=== PATIENT | female | born 1980 | race Caucasian/White ===

== ENCOUNTER 2017-07-29 20:10 | Emergency (ER) | payer OTHER ==
[~2017-07-29] VITALS: Ht 162.6 cm; Wt 97.5 kg
[~2017-07-29 20:10] MED LIST: AMOXICILLIN875 MG PO; ANUSOL-HC30 GM RC; AUGMENTIN; AUGMENTIN 875875 MG PO; BENTYL10 MG PO; CEFDINIR300 MG PO; CIPROFLOXACIN500 M1 PO; CORTISPORIN OTI10 M2 OT; CORTISPORIN OTI10 M2 OTIC; DIPHENHIST50 MG PO; FLAGYL500 MG PO; FLOMAX PO; FLOXIN OTI0.3 %/5 ML OT; IBUPROFEN; IBUPROFEN 800800 MG PO; KEFLEX500 MG PO; LEVOTHYROXINE0.05 MG PO; MACROBID 100 M100 M1 PO; MIRALAX255 GM PO; NOHOMEMEDICATIONS; NORCO 5-325 TA1 EACH PO; PHENERGAN 25 MG25 M1 PO; PHENERGAN 25 MG25 MG PO; PHENERGAN25 MG RE; PROTONIX40 M1 PO; TESSALON200 MG PO; TRAMADOL 50 MG50 MG PO; ZANTAC 150MG T150 M1 PO; ZANTAC 150MG T150 MG PO; ZOFRAN4 MG PO; ZPAK PO
[2017-07-29 21:24] LABS: ABSOLUTE BASOPHILS 0.1 thou/uL (0.0-0.2); ABSOLUTE EOSINOPHILS 0.2 thou/uL (0.0-0.7); ABSOLUTE LYMPHOCYTES 3.1 thou/uL (0.8-5.3); ABSOLUTE MONOCYTES 0.9 thou/uL (0.0-1.2); BASOPHILS 0.8 %; HEMATOCRIT 39.3 % (37.0-47.0); HEMOGLOBIN 13.3 gm/dL (12.0-15.0); LYMPHOCYTES 33.7 %; MCH 30.2 pg (26.0-34.0); MCHC 33.7 g/dL (28.0-37.0); MCV 89.5 fL (80.0-100.0); MONOCYTES 9.6 %; MPV 6.8 fl. (7.2-11.1); NUCLEATED RBCS 0 /100WBC; PLATELET COUNT* 346 thou/uL (150-400); POLYS 53.9 %; RBC 4.39 mil/uL (4.20-5.00); RDW-CV 12.4 % (10.5-14.5); WBC 9.3 thou/uL (4.0-11.0)
[2017-07-29 21:33] LABS: CALCIUM 8.7 mg/dL (8.5-10.1); CREATININE 0.8 mg/dL (0.6-1.3); POTASSIUM 3.5 mmol/L (3.5-5.1)
[2017-07-29 21:38] LABS: ALBUMIN 3.6 g/dL (3.4-5.0); TOTAL BILIRUBIN 0.4 mg/dL (<0.1-1.0); TOTAL PROTEIN 7.3 g/dL (6.4-8.2)
[2017-07-29 21:53] LABS: URINE BILIRUBIN NEGATIVE (Negative); URINE BLOOD TRACE (Negative); URINE CLARITY CLEAR; URINE COLOR YELLOW; URINE GLUCOSE-RANDOM NEGATIVE (Negative); URINE KETONES NEGATIVE (Negative); URINE LEUKOCYTES-REFLEX TRACE (Negative); URINE NITRITE-REFLEX NEGATIVE (Negative); URINE PROTEIN NEGATIVE (Negative); URINE SPECIFIC GRAVITY 1.025 (1.005-1.030); URINE UROBILINOGEN 0.2 E.U./dl (0.2-1.0)
[2017-07-29 22:03] LABS: BACTERIA-REFLEX None Seen /HPF (None Seen); CASTS None Seen /LPF (None Seen); CRYSTALS None Seen /LPF (None Seen); SQUAMOUS >10 Many /LPF (0-3); URINE RBC None Seen /HPF (0-2); URINE WBC-REFLEX 6-15 Few /HPF (0-5)
[2017-07-29] MEDS ORDERED: PROTONIX40 M4 PO (23:20)
[2017-07-29] MEDS ORDERED: BENTYL 20 MG TA20 M1 PO (23:21)
[2017-07-29] MEDS ORDERED: PERCOCET 5-3251 EACH PO (23:27)
[2017-07-29 23:54] VITALS: BP 134/71
== END 2017-07-29 23:55 | disposition home or self-care (01) ==
LOC: M.ERS 20:10
PROVIDERS: Nurse Practitioner
DX: K44.9 Diaphragmatic hernia without obstruction or gangrene (principal); Z87.442 Personal history of urinary calculi; Z90.710 Acquired absence of both cervix and uterus; Z88.8 Allergy status to other drugs, medicaments and biological substances; Z88.5 Allergy status to narcotic agent; Z77.22 Contact with and (suspected) exposure to environmental tobacco smoke (acute) (chronic)

== ENCOUNTER 2018-01-04 10:11 | Emergency (ER) | payer OTHER ==
[~2018-01-04] VITALS: Ht 162.6 cm; Wt 102.1 kg
[~2018-01-04 10:11] MED LIST changes: +BENTYL 20 MG TA20 M1 PO; +PERCOCET 5-3251 EACH PO; +PROTONIX40 M4 PO
[2018-01-04 11:04] LABS: ABSOLUTE EOSINOPHILS 0.2 thou/uL (0.0-0.7); ABSOLUTE LYMPHOCYTES 2.1 thou/uL (0.8-5.3); ABSOLUTE MONOCYTES 0.8 thou/uL (0.0-1.2); ABSOLUTE NEUTROPHILS 4.6 thou/uL (1.6-8.1); BASOPHILS 0.6 %; EOSINOPHILS 2.2 %; HEMOGLOBIN 13.4 gm/dL (12.0-15.0); LYMPHOCYTES 27.1 %; MCH 30.1 pg (26.0-34.0); MCHC 33.6 g/dL (28.0-37.0); MCV 89.6 fL (80.0-100.0); MONOCYTES 10.2 %; MPV 7.2 fl. (7.2-11.1); NUCLEATED RBCS 0 /100WBC; PLATELET COUNT* 389 thou/uL (150-400); POLYS 59.9 %; RBC 4.46 mil/uL (4.20-5.00); RDW-CV 12.5 % (10.5-14.5); WBC 7.7 thou/uL (4.0-11.0)
[2018-01-04 11:08] LABS: CALCIUM 8.5 mg/dL (8.5-10.1); CREATININE 0.7 mg/dL (0.6-1.3); POTASSIUM 3.9 mmol/L (3.5-5.1)
[2018-01-04 11:13] LABS: ALBUMIN 3.3 g/dL (3.4-5.0); TOTAL BILIRUBIN 0.6 mg/dL (<0.1-1.0); TOTAL PROTEIN 7.3 g/dL (6.4-8.2)
[2018-01-04 11:44] LABS: URINE BILIRUBIN NEGATIVE (Negative); URINE BLOOD NEGATIVE (Negative); URINE CLARITY CLEAR; URINE COLOR YELLOW; URINE GLUCOSE-RANDOM NEGATIVE (Negative); URINE KETONES NEGATIVE (Negative); URINE LEUKOCYTES-REFLEX NEGATIVE (Negative); URINE NITRITE-REFLEX NEGATIVE (Negative); URINE PROTEIN NEGATIVE (Negative); URINE UROBILINOGEN 0.2 E.U./dl (0.2-1.0)
[2018-01-04] MEDS ORDERED: MEDROLDOSEPACK PO (12:10)
[2018-01-04 12:21] VITALS: BP 116/77
== END 2018-01-04 12:22 | disposition home or self-care (01) ==
LOC: M.ERS 10:11
PROVIDERS: Nurse Practitioner Family
DX: J06.9 Acute upper respiratory infection, unspecified (principal); R51 Headache; R30.0 Dysuria; Z90.710 Acquired absence of both cervix and uterus; Z77.22 Contact with and (suspected) exposure to environmental tobacco smoke (acute) (chronic); Z88.5 Allergy status to narcotic agent; Z88.8 Allergy status to other drugs, medicaments and biological substances

== ENCOUNTER 2018-10-23 18:42 | Inpatient (IN) | payer OTHER ==
[~2018-10-23] VITALS: Ht 162.6 cm; Wt 108.4 kg
[~2018-10-23 18:42] MED LIST changes: +MEDROLDOSEPACK PO
[2018-10-23 18:57] VITALS: BP 121/74
[2018-10-23 19:00] LABS: URINE BILIRUBIN NEGATIVE (Negative); URINE BLOOD 3+ (Negative); URINE CLARITY CLEAR; URINE COLOR YELLOW; URINE GLUCOSE-RANDOM NEGATIVE (Negative); URINE KETONES NEGATIVE (Negative); URINE LEUKOCYTES-REFLEX 2+ (Negative); URINE NITRITE-REFLEX POSITIVE (Negative); URINE PROTEIN 1+ (Negative); URINE SPECIFIC GRAVITY >= 1.030 (1.005-1.030); URINE UROBILINOGEN 0.2 E.U./dl (0.2-1.0)
[2018-10-23 19:03] LABS: MUCUS None Seen strn/LPF (None Seen); SQUAMOUS 4-10 Moderate /LPF (0-3)
[2018-10-23 19:04] LABS: BACTERIA-REFLEX 1-9 Few /HPF (None Seen); CASTS None Seen /LPF (None Seen); CRYSTALS None Seen /LPF (None Seen); URINE WBC-REFLEX >25 Many /HPF (0-5); WBC CLUMPS Few (None Seen)
[2018-10-23 19:05] LABS: URINE RBC 3-10 Few /HPF (0-2)
[2018-10-23 19:42] LABS: HEMATOCRIT 40.2 % (37.0-47.0); HEMOGLOBIN 13.5 gm/dL (12.0-15.0); MCH 29.8 pg (26.0-34.0); MCHC 33.6 g/dL (28.0-37.0); MCV 88.7 fL (80.0-100.0); MPV 7.2 fl. (7.2-11.1); NUCLEATED RBCS 0 /100WBC; PLATELET COUNT* 391 thou/uL (150-400); RBC 4.53 mil/uL (4.20-5.00); RDW-CV 12.4 % (10.5-14.5); WBC 8.7 thou/uL (4.0-11.0)
[2018-10-23 19:54] LABS: ANION GAP 11 mmol/L (7-16); BUN 14 mg/dL (7-18); CALCIUM 9.1 mg/dL (8.5-10.1); CHLORIDE 103 mmol/L (98-107); CO2 26 mmol/L (21-32); GLUCOSE 192 mg/dL (70-99); POTASSIUM 3.4 mmol/L (3.5-5.1); SODIUM 140 mmol/L (136-145)
[2018-10-23 19:55] LABS: ABSOLUTE NEUTROPHILS 4.7 thou/uL (1.6-8.1); POLYS 54.2 %
[2018-10-23 19:56] LABS: ABSOLUTE BASOPHILS 0.1 thou/uL (0.0-0.2); ABSOLUTE EOSINOPHILS 0.2 thou/uL (0.0-0.7); ABSOLUTE MONOCYTES 0.7 thou/uL (0.0-1.2); BASOPHILS 0.8 %; EOSINOPHILS 2.6 %; LYMPHOCYTES 34.1 %; MONOCYTES 8.3 %
[2018-10-23 20:07] LABS: ALBUMIN 3.6 g/dL (3.4-5.0); ALKALINE PHOSPHATASE 123 U/L (46-116); LIPASE 78 U/L (73-393); SGOT 21 U/L (15-37); SGPT 37 U/L (30-65); TOTAL BILIRUBIN 0.3 mg/dL (<0.1-1.0); TOTAL PROTEIN 7.4 g/dL (6.4-8.2); TROPONIN-I LEVEL <0.06 ng/mL (<0.06)
[2018-10-24] VITALS (7 sets, daily range): BP systolic 109–120; BP diastolic 62–78
--- NOTE | 2018-10-24 08:06 | NUR ---
PT GIVEN A BREAKFAST TRAY. PT IS STILL SLEEPING.
--- NOTE | 2018-10-24 11:19 | NUR ---
PATIENT'S ADMISSION ASSESSMENT AND HISTORY OBTAINED. DENIES ANY PAIN. REPORT GIVEN TO Sloane NORTON RN WHO IS RESUMING CARE. PATIENT'S CALL LIGHT WITHIN REACH.
[2018-10-24] MEDS ORDERED: PROTONIX40 M1 PO (11:21)
[2018-10-24] MEDS ORDERED: ZANTAC 150MG T150 MG PO (11:21)
--- NOTE | 2018-10-24 16:52 | NUR ---
PATIENT ARRIVED TO UNSIT FROM ED AT APPROX 1330. ALERT AND ORIENTED X4. ADMISSION HISTORY AND ASSESSMENT COMPLETED AND CHARTED. VSS ON ROOM AIR. FLUIDS INFUSING UPON ARRIVAL AND INFUSED ORDERED THROUGHOUT SHIFT. PATIENT REQUESTED TO CHANGE PAIN MEDICATION FROM FENTANYL TO MORPHINE AND TO ADD TORADOL, DR WEINSTEIN CHANGED ORDERS SUCH. PAIN MANAGED WITH MORPHINE AND TORADOL. BLOOD SUGARS MONITORED, NO NEED FOR INSULIN ATT HIS TIME BUT AWAITING HGA1C RESULTS TO DETERMINE DIABETIC STATUS. PATIENT RESTING IN BED AT THIS TIME. HOURLY ROUNDS COMPLETED, CALL LIGTH WITHIN REACH, NURSING WILL CONTINUE TO MONITOR.
[2018-10-25 04:42] LABS: HEMATOCRIT 35.9 % (37.0-47.0); HEMOGLOBIN 12.1 gm/dL (12.0-15.0); MCH 30.2 pg (26.0-34.0); MCHC 33.6 g/dL (28.0-37.0); MCV 89.8 fL (80.0-100.0); MPV 7.1 fl. (7.2-11.1); RDW-CV 12.9 % (10.5-14.5); WBC 5.6 thou/uL (4.0-11.0)
[2018-10-25 05:12] LABS: ALBUMIN 2.8 g/dL (3.4-5.0); CALCIUM 7.6 mg/dL (8.5-10.1); CREATININE 0.7 mg/dL (0.6-1.3); MAGNESIUM 1.6 mg/dL (1.8-2.4); POTASSIUM 3.9 mmol/L (3.5-5.1); TOTAL BILIRUBIN 0.2 mg/dL (<0.1-1.0); TOTAL PROTEIN 5.9 g/dL (6.4-8.2)
--- NOTE | 2018-10-25 05:20 | NUR ---
PT REMAINED ALERT AND ORIENTED. VITALS STABLE RA. MEDS GIVEN ORDERED. PAIN CONTROLLED WITH MORPHINE AND TORADOL. NO NAUSEA OR VOMITING THIS SHIFT. WILL CONTINUE TO MONITOR.
[2018-10-25 08:10] VITALS: BP 139/82
[2018-10-25 14:09] LABS: GLYCOHEMOGLOBIN (HGB A1C) 6.7 % (4.8-5.6)
[2018-10-25 15:30] VITALS: BP 106/52
--- NOTE | 2018-10-25 17:03 | NUR ---
pt remained alert and oriented. pt resting in room. pain meds given as ordered. fall risk precautions in place. hourly rounding completed. will continue to monitor.
[2018-10-25 20:35] VITALS: BP 125/85
--- NOTE | 2018-10-26 05:10 | NUR ---
PT REMAINED ALERT AND ORIENTED. VITALS STABLE. MEDS GIVEN ORDERED. ELECTROLYTE REPLACEMENT IN PROGRESS. PT STATED SEVERE HEADACHE WITH NAUSEA, RESOLVED WITH MORPHINE, TYLENOL, CAFFEIN. ICE PACK PROVIDED ALSO. PROMETHAZINE GIVEN PER PT REQUEST. WILL CONTINUE TO MONITOR.
[2018-10-26 08:00] VITALS: BP 148/68
[2018-10-26] MEDS ORDERED: BACTRIM DS TAB1 EACH PO (11:04)
[2018-10-26 11:41] VITALS: BP 148/68
--- NOTE | 2018-10-26 12:01 | NUR ---
PT DISCHARGED AND LEFT UNIT AT 1201 WITH NURSING STAFF AND TO HOME. IV OUT. PAPER SCRIPT AND CARE NOTES GIVE. PT STABLE UPON DISCHARGE.
== END 2018-10-26 12:01 | disposition home or self-care (01) | DRG 690 ==
LOC: M.ERS 18:42 → M.TBA-ER 21:59 → M.ORTHSURG 10-24 13:00
PROVIDERS: Physician Assistant; ADMIT Internal Medicine
DX: N12 Tubulo-interstitial nephritis, not specified as acute or chronic (principal); R65.10 Systemic inflammatory response syndrome (SIRS) of non-infectious origin without acute organ dysfunction; Z68.41 Body mass index [BMI] 40.0-44.9, adult; Z77.22 Contact with and (suspected) exposure to environmental tobacco smoke (acute) (chronic); E66.01 Morbid (severe) obesity due to excess calories; K76.0 Fatty (change of) liver, not elsewhere classified; R91.1 Solitary pulmonary nodule; R73.9 Hyperglycemia, unspecified; Z87.442 Personal history of urinary calculi; Z93.6 Other artificial openings of urinary tract status; Z90.710 Acquired absence of both cervix and uterus; Z93.3 Colostomy status; Z88.6 Allergy status to analgesic agent; Z88.8 Allergy status to other drugs, medicaments and biological substances; Z87.891 Personal history of nicotine dependence; Z79.899 Other long term (current) drug therapy

== ENCOUNTER 2020-12-04 10:53 | Emergency (ER) | payer OTHER ==
[~2020-12-04] VITALS: Ht 162.6 cm; Wt 116.1 kg
[~2020-12-04 10:53] MED LIST changes: +BACTRIM DS TAB1 EACH PO
[2020-12-04 10:55] VITALS: BP 129/93
[2020-12-04] MEDS ORDERED: ZPAK PO (11:20)
[2020-12-04] MEDS ORDERED: APAP W/CODEINE1 TA2 PO (11:20)
[2020-12-04] MEDS ORDERED: PREDNISONE 20 M20 MG PO (11:20)
[2020-12-04] MEDS ORDERED: PROAIR HFA8.5 GM INH (11:20)
== END 2020-12-04 11:30 | disposition home or self-care (01) ==
LOC: M.ERS 10:53
DX: J18.9 Pneumonia, unspecified organism (principal); Z88.6 Allergy status to analgesic agent; Z88.5 Allergy status to narcotic agent; Z90.710 Acquired absence of both cervix and uterus; Z87.442 Personal history of urinary calculi; Z90.89 Acquired absence of other organs; Z98.890 Other specified postprocedural states

== ENCOUNTER 2021-05-10 08:27 | Emergency (ER) | payer OTHER ==
[~2021-05-10] VITALS: Ht 160 cm; Wt 86.2 kg
[~2021-05-10 08:27] MED LIST changes: +APAP W/CODEINE1 TA2 PO; +PREDNISONE 20 M20 MG PO; +PROAIR HFA8.5 GM INH
[2021-05-10 08:45] VITALS: BP 148/93
[2021-05-10] MEDS ORDERED: PREDNISONE 20 M20 M1 PO (09:18)
[2021-05-10] MEDS ORDERED: VENTOLIN HFA 1818 GM INH (09:18)
[2021-05-10] MEDS ORDERED: ZPAK PO (09:18)
[2021-05-10] MEDS ORDERED: PROMETH-CODEIN 65 ML PO (09:18)
== END 2021-05-10 10:00 | disposition home or self-care (01) ==
LOC: M.ERS 08:27
DX: J40 Bronchitis, not specified as acute or chronic (principal); Z90.710 Acquired absence of both cervix and uterus; Z79.899 Other long term (current) drug therapy; Z88.6 Allergy status to analgesic agent